=== PATIENT | female | born 1990 | race Caucasian/White ===

== ENCOUNTER 2021-02-26 12:29 | Outpatient (CLI) | payer MEDICAID ==
[2021-02-26 12:35] LABS: MUDS CUTOFF CONCENTRATIONS CUTOFF CONC BELOW:
[2021-02-26 18:55] LABS: AMPHETAMINE SCREEN,URINE NEGATIVE (NEGATIVE); BARBITURATE SCREEN,UR NEGATIVE (NEGATIVE); BENZODIAZEPINES SCREEN, URINE NEGATIVE (NEGATIVE); COCAINE SCREEN URINE NEGATIVE (NEGATIVE); METHADONE SCREEN, URINE NEGATIVE (NEGATIVE); METHAMPHETAMINES SCREEN, URINE NEGATIVE (NEGATIVE); OPIATE SCREEN, URINE NEGATIVE (NEGATIVE); OXYCODONE SCREEN, URINE NEGATIVE (NEGATIVE); PROPOXYPHENE SCREEN, URINE NEGATIVE (NEGATIVE); THC CANNABINOID SCREEN, URINE NEGATIVE (NEGATIVE); TRICYCLIC ANTIDEPRESSANT,URINE NEGATIVE (NEGATIVE)
== END 2021-02-26 12:30 | disposition home or self-care (01) ==
LOC: LAB.N 12:29
PROVIDERS: ATTEND Psychiatry & Neurology Psychiatry
DX: Z79.899 Other long term (current) drug therapy (principal)
CPT/HCPCS: 80306

== ENCOUNTER 2021-09-21 09:24 | Outpatient (CLI) | payer MEDICAID | END 2021-09-21 09:25 | disposition home or self-care (01) | LOC: DI.N 09:24 | PROVIDERS: ATTEND Registered Nurse | DX: Z53.9 Procedure and treatment not carried out, unspecified reason (principal) ==

== ENCOUNTER 2021-09-21 09:27 | Outpatient (CLI) | payer MEDICAID ==
[2021-09-21 13:49] LABS: BASOPHILS # (AUTO) 0.1 10^3/uL (0.0-0.1); BASOPHILS % (AUTO) 0.9 %; EOSINOPHILS # (AUTO) 0.1 10^3/uL (0.0-0.7); EOSINOPHILS % (AUTO) 1.9 %; HCT - HEMATOCRIT 41.1 % (37.0-47.0); HGB - HEMOGLOBIN 13.3 g/dL (12.0-16.0); LYMPHOCYTES # (AUTO) 2.5 10^3/uL (1.5-3.5); LYMPHOCYTES % (AUTO) 42.8 %; MEAN CORPUSCULAR HEMOGLOBIN 30.5 pg (27.0-31.0); MEAN CORPUSCULAR HGB CONC 32.4 g/dL (32.0-36.0); MEAN CORPUSCULAR VOLUME 94.3 fL (81.0-99.0); MEAN PLATELET VOLUME 10.5 fL (7.9-10.8); MONOCYTES # (AUTO) 0.4 10^3/uL (0.0-1.0); MONOCYTES % (AUTO) 6.6 %; NEUTROPHILS # (AUTO) 2.7 10^3/uL (1.5-6.6); NEUTROPHILS % (AUTO) 47.6 %; PLT - PLATELET COUNT 305 10^3/uL (130-450); RED BLOOD COUNT 4.36 10^6/uL (4.20-5.40); WHITE BLOOD COUNT 5.7 x10^3/uL (4.8-10.8)
[2021-09-21 14:25] LABS: ALBUMIN 4.4 g/dL (3.2-5.5); ALBUMIN/GLOBULIN RATIO 1.6 (1.0-2.2); CALCIUM 9.4 mg/dL (8.5-10.3); CREATININE 0.6 mg/dL (0.4-1.0); POTASSIUM 3.7 mmol/L (3.5-5.0); TOTAL PROTEIN 7.2 g/dL (6.7-8.2)
[2021-09-21 14:31] LABS: THYROID STIMULATING HORMONE 1.63 uIU/mL (0.34-5.60)
== END 2021-09-21 09:28 | disposition home or self-care (01) ==
LOC: LAB.N 09:27
PROVIDERS: ATTEND Registered Nurse
DX: Z13.0 Encounter for screening for diseases of the blood and blood-forming organs and certain disorders involving the immune mechanism (principal); Z79.899 Other long term (current) drug therapy; Z13.29 Encounter for screening for other suspected endocrine disorder
CPT/HCPCS: 36415; 80050

== ENCOUNTER 2021-09-23 08:27 | Outpatient (CLI) | payer MEDICAID ==
--- NOTE | 2021-09-23 12:43 | XRAY Report ---
PROCEDURE: Shoulder 3 View RT INDICATIONS: RIGHT SHOULDER PAIN TECHNIQUE: 4 views of the shoulder were acquired. COMPARISON: None. FINDINGS: BONES: No acute, displaced fracture. The joint spaces are maintained. No os acromiale. SOFT TISSUES: No focal abnormality or appreciable pneumothorax. IMPRESSION: 1.No acute osseous abnormality. Reviewed by: Abdulaziz Ugalde MD on 09/23/2021 12:42 PM [facility] Approved by: Abdluaziz Ugalde MD on 09/23/2021 12:42 PM [facility] Station ID: [id number]
== END 2021-09-23 08:28 | disposition home or self-care (01) ==
LOC: DI.WOS 08:27
PROVIDERS: ATTEND Orthopaedic Surgery
DX: M24.411 Recurrent dislocation, right shoulder (principal)

== ENCOUNTER 2022-07-08 09:09 | Outpatient (CLI) | payer MEDICAID ==
--- NOTE | 2022-07-09 10:33 | Mammography Report ---
BILATERAL DIGITAL SCREENING MAMMOGRAM 3D/2D: 07/08/2022 CLINICAL: Family history of breast cancer. Baseline exam. Routine screening. No prior exams were available for comparison. Both breasts are extremely dense, which lowers the sensitivity of mammography (category d />75% gland ular tissue). No significant masses, calcifications, or other findings are seen in either breast. IMPRESSION: NEGATIVE There is no mammographic evidence of malignancy. A 1 year screening mammogram is recommended. Based on Tyrer-Cuzick model (a risk assessment model), the patient's lifetime risk is 27.8% and her 1 0 year risk is 2.2%. If a patient has an elevated risk, a more comprehensive evaluation should be con sidered and/or a referral to a genetic counselor. The [place] [employer], [employer], and NCCN Guidelines advise the consideration of Breast MRI as an adjunct to screening mammog bart in patients whose "Lifetime risk to develop breast cancer" is 20% or higher. This exam was interpreted at Station ID: [id number]. NOTE: For mammograms, a report in lay terms will be sent to the patient. Approximately 15% of breast malignancies will not be visualized mammographically. In the management of a palpable breast mass, a negative mammogram must not discourage biopsy of a clinically suspicious lesion. Electronically Signed By: Jakob Acosta M.D. acr/aisha:07/08/2022 12:43:54 ACR BI-RADS Category 1: Negative 3341F PARENCHYMAL PATTERN: (VD) - The breast(s) demonstrate(s) extremely dense parenchyma, limiting the sen sitivity of mammography. BI-RADS CATEGORY: (1) - 1 RECOMMENDATION: (ANNUAL) - Recommend routine annual screening mammography. [id number] 1 year screening LATERALITY: (B)
== END 2022-07-08 09:10 | disposition home or self-care (01) ==
LOC: DI 09:09
PROVIDERS: ATTEND Nurse Practitioner Family
DX: N64.89 Other specified disorders of breast (principal); Z80.3 Family history of malignant neoplasm of breast

== ENCOUNTER 2023-01-09 08:36 | Outpatient (CLI) | payer MEDICAID ==
[2023-01-09 12:06] LABS: BASOPHILS # (AUTO) 0.1 10^3/uL (0.0-0.1); BASOPHILS % (AUTO) 1.1 %; EOSINOPHILS # (AUTO) 0.1 10^3/uL (0.0-0.7); EOSINOPHILS % (AUTO) 2.1 %; HCT - HEMATOCRIT 40.5 % (37.0-47.0); HGB - HEMOGLOBIN 13.1 g/dL (12.0-16.0); LYMPHOCYTES # (AUTO) 2.6 10^3/uL (1.5-3.5); LYMPHOCYTES % (AUTO) 45.4 %; MEAN CORPUSCULAR HEMOGLOBIN 30.5 pg (27.0-31.0); MEAN CORPUSCULAR HGB CONC 32.3 g/dL (32.0-36.0); MEAN CORPUSCULAR VOLUME 94.2 fL (81.0-99.0); MEAN PLATELET VOLUME 10.4 fL (7.9-10.8); MONOCYTES # (AUTO) 0.5 10^3/uL (0.0-1.0); MONOCYTES % (AUTO) 8.5 %; NEUTROPHILS # (AUTO) 2.4 10^3/uL (1.5-6.6); NEUTROPHILS % (AUTO) 42.7 %; PLT - PLATELET COUNT 310 10^3/uL (130-450); RED CELL DISTRIBUTION WIDTH 12.2 % (12.0-15.0); WHITE BLOOD COUNT 5.7 x10^3/uL (4.8-10.8)
[2023-01-09 13:03] LABS: ALBUMIN 4.3 g/dL (3.2-5.5); ALBUMIN/GLOBULIN RATIO 1.4 (1.0-2.2); ALKALINE PHOSPHATASE 34 IU/L (42-121); ALT ALANINE AMINOTRANSFERASE 15 IU/L (10-60); AST ASPARTATE AMINOTRANSFERASE 16 IU/L (10-42); BILIRUBIN,TOTAL 0.7 mg/dL (0.2-1.0); BUN - BLOOD UREA NITROGEN 9 mg/dL (6-20); CARBON DIOXIDE - CO2 25 mmol/L (21-32); CHLORIDE 104 mmol/L (101-111); CHOL/HDL RATIO 2.9 (<4.4); CHOLESTEROL 203 mg/dL; CREATININE 0.6 mg/dL (0.4-1.0); GFR - MDRD 114 (>89); GLUCOSE 97 mg/dL (70-100); HDL CHOLESTEROL 69 mg/dL; LDL CHOLESTEROL,CALCULATED 126 mg/dL; LDL/HDL RATIO 1.8 (<4.4); POTASSIUM 3.9 mmol/L (3.5-5.0); SODIUM 139 mmol/L (135-145); TOTAL PROTEIN 7.4 g/dL (6.7-8.2); TRIGLYCERIDES 40 mg/dL; VLDL CHOLESTEROL 8 mg/dL
[2023-01-09 13:17] LABS: THYROID STIMULATING HORMONE 2.01 uIU/mL (0.34-5.60)
== END 2023-01-09 08:37 | disposition home or self-care (01) ==
LOC: LAB.N 08:36
PROVIDERS: ATTEND Physician Assistant Medical
DX: Z00.00 Encounter for general adult medical examination without abnormal findings (principal)
CPT/HCPCS: 36415; 80050; 80061; 83721

== ENCOUNTER 2023-06-17 20:54 | Emergency (ER) | payer MEDICAID ==
[2023-06-17 21:08] VITALS: BP 124/75; O2SAT 100
[2023-06-17] MEDS ORDERED: HYDROcod/ACETAM 5/325 MG TABLET PO STA (21:28)
--- NOTE | 2023-06-17 21:47 | XRAY Report ---
PROCEDURE: Wrist 3 View RT INDICATIONS: fell/injures R wrist, swelling TECHNIQUE: 3 views of the wrist were acquired. COMPARISON: None. FINDINGS: Bones: There is suggestion of an acute impacted fracture involving distal radius with fracture line likely extending to radiocarpal joint. No other fracture or dislocation is seen.. No suspicious bony lesions. Soft tissues: Dorsal wrist soft tissue swelling is noted. No suspicious soft tissue calcifications o r masses. IMPRESSION: Suggestion of impacted intra-articular fracture involving radial and dorsal aspect of distal radius w ith dorsal wrist soft tissue swelling. Reviewed by: Christofer Ye MD on 06/17/2023 9:46 PM PST Approved by: Christofer Ye MD on 06/17/2023 9:46 PM PST Station ID: [id number]
--- NOTE | 2023-06-17 21:56 | ED Physician Documentation ---
PD HPI UPPER EXT INJURY - Stated complaint Stated Complaint: RT WRIST INJ - Chief complaint Chief Complaint: Trauma Ext - History obtained from History obtained from: Patient - History of Present Illness Location: Right, Wrist Pain level max: 10 Pain level now: 10 Improved by: Rest Worsened by: Moving, Palpating Associated symptoms: Swelling. No: Weakness, Numbness, Tingling, Discolored Contributing factors: No: Anticoagulated, Prior ortho surgery - Additonal information Additional information: 33-year-old female, left-handed presents to the emergency department after a trip and fall onto concrete stairs. Injuring the right wrist. Worse with movement, better with rest. No deformity. There is swelling. No numbness or tingling. Not anticoagulated. Has not injured this wrist previously. No head, neck, back pain. Review of Systems Constitutional: denies: Fever : denies: Now EGA Musculoskeletal: denies: Neck pain, Back pain Neurologic: denies: Confused, Headache, Head injury, LOC PD PAST MEDICAL HISTORY - Past Medical History Past Medical History: Yes Cardiovascular: None Respiratory: Asthma Neuro: None Endocrine/Autoimmune: None : Incontinence, Frequency, Other Psych: Depression, Anxiety Derm: None - Past Surgical History Past Surgical History: Yes Derm: Skin grafts, Other - Present Medications Home Medications: Ambulatory Orders Medication Instructions Recorded Confirmed Lisdexamfetamine Dimesylate 15 mg PO DAILY 04/19/21 06/17/23 [Vyvanse] HYDROcod/ACETAM 5/325 [Ruffin 5/325] 1 - 2 ea PO Q6H PRN #14 tablet 06/17/23 - Allergies Allergies/Adverse Reactions: Allergies Allergy/AdvReac Type Severity Reaction Status Date / Time No Known Drug Allergies Allergy Verified 06/17/23 21:04 - Social History Does the pt smoke?: No Smoking Status: Never smoker Does the pt drink ETOH?: Yes ETOH Use: Wine, Beer, Liquor Does the pt have substance abuse?: No - Immunizations Immunizations are current?: Yes - POLST Patient has POLST: No PD ED PE NORMAL - Vitals Vital signs reviewed: Yes - General General: Alert and oriented X 3, No acute distress, Well developed/nourished - HEENT HEENT: Atraumatic, PERRL, Moist mucous membranes - Neck Neck: Supple, no meningeal sign, No bony TTP - Cardiac Cardiac: RRR, Strong equal pulses - Respiratory Respiratory: No respiratory distress, Clear bilaterally - Abdomen Abdomen: Soft, Non tender, Non distended - Back Back: No spinal TTP - Derm Derm: Warm and dry - Extremities Extremities: Other (R wrist - TTP over the distal radius. Mild swelling. No scaphoid tenderness. Neurovascular intact. Otherwise normal examination of the right wrist.) - Neuro Neuro: Alert and oriented X 3 - Psych Psych: Normal mood, Normal affect Results - Vitals Vitals: Vital Signs - 24 hr 06/17/23 20:59 Temperature 36.4 C L Heart Rate 69 Respiratory 16 Rate Blood Pressure 124/75 O2 Saturation 100 Oxygen O2 Source Room air - Rads (name of study) Right wrist x-ray Relevant Findings:: Final report received, See rad report Procedures - Splint (location) - Minor R wrist Splint applied by: Physician Type of splint: Fiberglass, Short arm, Volar cock up Other: Patient tolerated well, No complications, Neurovascular intact PD Medical Decision Making - ED course Complexity details: reviewed results, re-evaluated patient, considered differential, d/w patient ED course: Patient with what appears to be an impacted fracture of the right distal radius. Placed in a volar splint. We will have her follow-up with orthopedics for further care. Pain well controlled with Vicodin. Neurovascular intact. No evidence of scaphoid injury. Patient counseled regarding signs and symptoms for which I believe and urgent re-evaluation would be necessary. Patient with good understanding of and agreement to plan and is comfortable going home at this time This document was made in part using voice recognition software. While efforts are made to proofread this document, sound alike and grammatical errors may occur. Departure - Departure Disposition: Home, Self Care Clinical Impression: Distal radius fracture, right Qualifiers: Encounter type: initial encounter Fracture type: closed Fracture morphology: unspecified fracture morphology Qualified Code(s): S52.501A - Unspecified fracture of the lower end of right radius, initial encounter for closed fracture Condition: Good Instructions: ED Fx Upper Ext Follow-Up: Veronica Martínez PA-C [Primary Care Provider] - [facility] [Provider Group] - Within 1 week Prescriptions: HYDROcod/ACETAM 5/325 [Ruffin 5/325] 1 - 2 ea PO Q6H PRN #14 tablet PRN Reason: Pain Comments: You appear to have a distal radius fracture. You were placed into a splint today. It is important that you follow-up with orthopedics for further care. Please return if you worsen. I am prescribing a short course of narcotic pain medication for you. These are potentially dangerous and addictive medications that should be used carefully. These medications may constipate you. Take an wzpd-san-tgpeygl stool softener (docusate) twice daily with plenty of water while taking these medications. If you go 24 hours without a bowel movement, take [id number]-idlhdjl miralax, per package instructions. Do not drink or drive while taking these medications. If you received narcotic or sedating medications while in the emergency department, do not drive for 24 hours. Store this medication in a safe, secure place and out of reach of children. It is a violation of federal law to give or sell this medication to another person or to use in a manner other than prescribed. The ED will not refill narcotic prescriptions, including prescriptions lost or stolen. To dispose of unwanted medications: 1. [facility] [address] in [place] has a medication drop box. They accept prescription medications (in pill form) Thursday through Thursday 9:00 a.m. to 5:00 p.m. 2. The [facility] [employer] accepts prescription medications (in pill form only) for disposal year round. Call for more information. 3. Contact the [facility] for the next [facility] sponsored prescription drug collection event. , [phone], or [phone]; Forms: PCP List Discharge Date/Time: 06/17/23 22:36
== END 2023-06-17 22:36 | disposition home or self-care (01) ==
LOC: ED 20:54
DX: S52.501A Unspecified fracture of the lower end of right radius, initial encounter for closed fracture (principal); W10.9XXA Fall (on) (from) unspecified stairs and steps, initial encounter
CPT/HCPCS: 73110; 99283; A9270

== ENCOUNTER 2023-06-22 08:00 | Outpatient (CLI) | payer MEDICAID ==
--- NOTE | 2023-06-22 11:44 | XRAY Report ---
PROCEDURE: Wrist 3 View RT INDICATIONS: RIGHT WRIST PAIN TECHNIQUE: 3 views of the wrist were acquired. COMPARISON: None. FINDINGS: Bones: No significant change in impaction fracture of the distal radius. No other fractures or dislo cations. Soft tissues: No suspicious soft tissue calcifications or masses. IMPRESSION: Unchanged appearance of impaction fracture of the distal radius. Reviewed by: Sergey Chun MD on 06/22/2023 11:43 AM PST Approved by: Sergey Chun MD on 06/22/2023 11:43 AM PST Station ID: [id number]
== END 2023-06-22 23:59 | disposition home or self-care (01) ==
LOC: DI.WOS 08:00
PROVIDERS: ATTEND Orthopaedic Surgery
DX: S52.591A Other fractures of lower end of right radius, initial encounter for closed fracture (principal)

== ENCOUNTER 2023-06-26 08:58 | Outpatient (CLI) | payer MEDICAID ==
--- NOTE | 2023-06-27 13:34 | CT Report ---
PROCEDURE: UPPER EXTREMITY WO - RT INDICATIONS: WRIST FX TECHNIQUE: Noncontrast 2 mm axial sections were acquired through the elbow joint, with coronal and sagittal refo rmats. For radiation dose reduction, the following was used: automated exposure control, adjustment of mA and/or kV according to patient size. COMPARISON: X-ray right wrist 06/22/2023. FINDINGS: Image quality: Excellent. Bones: Mildly displaced and mildly impacted fracture of the distal radius with intra-articular exten adriana. The fracture extends from the lateral cortex of the radius along the metaphysis into the joint space. No other acute fractures are identified. Soft tissues: Mild soft tissue swelling of the breasts. IMPRESSION: Mildly displaced and impacted intra-articular fracture of the distal radius. No other ac darryl fractures are seen. Reviewed by: Juan Pereira MD on 06/27/2023 1:33 PM PST Approved by: Juan Pereira MD on 06/27/2023 1:33 PM PST Station ID: [id number]
== END 2023-06-26 08:59 | disposition home or self-care (01) ==
LOC: DI 08:58
PROVIDERS: ATTEND Orthopaedic Surgery
DX: S52.591A Other fractures of lower end of right radius, initial encounter for closed fracture (principal)

== ENCOUNTER 2023-07-21 08:00 | Outpatient (CLI) | payer MEDICAID ==
--- NOTE | 2023-07-21 19:16 | XRAY Report ---
PROCEDURE: Wrist 3 View RT INDICATIONS: RIGHT WRIST FRACTURE TECHNIQUE: 3 views of the wrist were acquired. COMPARISON: Right wrist radiograph on June 22, 2023 and June 17, 2023 FINDINGS: Bones: Mildly impacted distal radius fracture appears less conspicuous. No new fracture or dislocati on. Stable alignment. No suspicious bony lesions. Soft tissues: No suspicious soft tissue calcifications or masses. IMPRESSION: Interval osseous healing of mildly impacted distal radius fracture. Stable alignment. Reviewed by: Russ Chambers MD on 07/21/2023 7:15 PM PST Approved by: Russ Chambers MD on 07/21/2023 7:15 PM PST Station ID: [id number]
== END 2023-07-21 23:59 | disposition home or self-care (01) ==
LOC: DI.WOS 08:00
PROVIDERS: ATTEND Orthopaedic Surgery
DX: S52.501D Unspecified fracture of the lower end of right radius, subsequent encounter for closed fracture with routine healing (principal)

== ENCOUNTER 2023-07-21 08:44 | Outpatient (CLI) | payer MEDICAID ==
--- NOTE | 2023-07-22 09:23 | Mammography Report ---
BILATERAL DIGITAL SCREENING MAMMOGRAM 3D/2D: 07/21/2023 CLINICAL: Routine screening. Family history of breast cancer. Comparison is made to exam dated: 07/08/2022 mammogram - [facility]. Both breasts are heterogeneously dense, which may obscure small masses (category c / 51-75% glandular tissue). No significant masses, calcifications, or other findings are seen in either breast. There has been no significant interval change. IMPRESSION: NEGATIVE There is no mammographic evidence of malignancy. A 1 year screening mammogram is recommended. Based on Tyrer-Cuzick model (a risk assessment model), the patient's lifetime risk is 27.7% and her 1 0 year risk is 2.4%. If a patient has an elevated risk, a more comprehensive evaluation should be con sidered and/or a referral to a genetic counselor. The [place] [employer], [employer], and NCCN Guidelines advise the consideration of Breast MRI as an adjunct to screening mammog bart in patients whose "Lifetime risk to develop breast cancer" is 20% or higher. This exam was interpreted at Station ID: [id number]. NOTE: For mammograms, a report in lay terms will be sent to the patient. Approximately 15% of breast malignancies will not be visualized mammographically. In the management of a palpable breast mass, a negative mammogram must not discourage biopsy of a clinically suspicious lesion. Electronically Signed By: Baljit swanson/aisha:07/21/2023 12:40:45 letter sent: No_Letter ACR BI-RADS Category 1: Negative 3341F PARENCHYMAL PATTERN: (D) - The breast(s) demonstrate(s) heterogeneously dense fibroglandular nichelle giron. BI-RADS CATEGORY: (1) - 1 Mammogram [id number] 1 year screening LATERALITY: (B)
== END 2023-07-21 08:45 | disposition home or self-care (01) ==
LOC: DI.N 08:44
DX: Z12.31 Encounter for screening mammogram for malignant neoplasm of breast (principal); R92.333 Mammographic heterogeneous density, bilateral breasts; R92.323 Mammographic fibroglandular density, bilateral breasts; Z80.3 Family history of malignant neoplasm of breast